=== PATIENT | male | born 1935 | race Caucasian/White ===

== ENCOUNTER 2017-03-11 19:48 | Inpatient (IN) | payer MEDICARE, OTHER ==
[~2017-03-11] VITALS: Ht 177.8 cm; Wt 111.4 kg
--- NOTE | ~2017-03-11 | ECH ---
Transthoracic Echocardiography Report (TTE) Demographics Patient Name CHARANJIT MUNOZ Date of Study 03/12/2017 Patient Number [id number] Visit Number [id number] Date of 1935 Room Number 532 Accession Number [id number] Gender Male Age 81 year(s) Referring Luis Clinton MD Diagnostic Assistant Nancy Ferrer Physician [facility] Physician Interpreting Juan HAGAN Janitorial Assistant Physician Marcellus Supervising Ordering Physician Luis Clinton MD, MD/P Nurse Stress Steam Turbine Operator Conclusions Contractility Score Summary Normal Left Ventricular contractility was noted. Summary Technically adequate exam. Study done supine. Patient refused to turn on left side due to neck pain. The estimated left ventricular ejection fraction is 60-65%. The left atrium is severely dilated by LA volume index measurement. The aortic valve is mildly sclerotic. There is no aortic regurgitation by color Doppler. Visualized portions of the aortic root and ascending aorta appear normal in size. No evidence of dissection. Recommendation The patient will be given the results of this study by the physician who ordered the exam. Procedure Type of Study TTE procedure:Echo Complete SF. Procedure Date Date: 03/12/2017 Start: 12:48 Technical Quality: Adequate visualization Indications:Chest pain, Atrial fibrillation, Diabetes, Hypertension and pacemaker/defibrillator. Additional Indications:CT evidence of possible aortic dissection Appropriate Use Criteria: 9 Height: 70 inches Weight: 245.6 pounds BSA: 2.28 m Rhythm: Atrial fibrillation HR: 62 bpm BP: 115/55 mmHg M-Mode/2D Measurements LV Diastolic Dimension: 4.68 cm LV Systolic Dimension: 2.17 cm LV Septum Diastolic: 0.98 cm LV PW Diastolic: 0.98 cm AO Root Dimension: 2.88 cm Cardiac Output: 4.23 l/min LA Dimension: 4.41 cm Cardiac Index: 1.86 l/min*m RV Diastolic Dimension: 3.63 cm LA volume index: 49 ml/m LVOT: 1.99 cm LVOT VTI: 21.97 cm RV Base: 3.6 cm LV Stroke volume: 68.3 ml RV Mid: 2.9 cm LV Stroke volume index: 29.96 ml/m TAPSE: 2 cm TDI-S': 10 cm/s Doppler Measurements AV Peak Velocity: 1.4 m/s MV Peak E-Wave: 1.25 m/s AV Peak Gradient: 7.84 mmHg AV Mean Gradient: 6.23 mmHg MV P1/2t: 57.5 msec LVOT Peak Velocity: 1.1 m/s AV Area (Continuity):2.47 cm MV Area (PHT): 3.83 cm TR Velocity:2.73 m/s PV Peak Velocity: 1.03 m/s TR Gradient:29.81 mmHg PV Peak Gradient: 4.27 mmHg Estimated RAP:3 mmHg Estimated PASP: 32.81 mmHg Estimated RVSP: 33 mmHg E' Septal Velocity: 0.09 m/s E' Lateral Velocity: 0.11 m/s RA Area: 17.32 cm Findings Left Ventricle Normal left ventricle size and function. Diastolic function indeterminate due to patient's arrhythmia. Right Ventricle Normal right ventricle structure and function. Left Atrium The left atrium is severely dilated by LA volume index measurement. Right Atrium Normal right atrial size. Mitral Valve Normal mitral valve structure and function. Trivial mitral regurgitation by color Doppler. Aortic Valve The aortic valve is mildly sclerotic. There is no aortic regurgitation by color Doppler. Tricuspid Valve Normal tricuspid valve structure and function. Mild tricuspid regurgitation by color Doppler. Normal pulmonary pressures. Pulmonic Valve Normal pulmonic valve structure and function. Pericardial Effusion No evidence of pericardial effusion. Miscellaneous Visualized portions of the aortic root and ascending aorta appear normal in size. No evidence of dissection. Pleural Effusion No evidence of pleural effusion. Contractility Score LV regional wall motion:(0-Non visualized 1-Normal 2-Hypokinesis 3-Akinesis 4-Dyskinesis 5-Aneurysm) Signature
[~2017-03-11 19:48] MED LIST: ALDACTONE DPS25 MG PO; ASA CHILDREN'S81 MG PO; CALTRATE-600 D600 MG; CALTRATE-600 D600 MG PO; HUMALOG100 UNIT/1 SQ; LASIX DPS80 MG PO; MIRAPEX0.5 MG PO; PATANOL 0.1%5 ML OU; PROTONIX40 MG PO; XARELTO15 MG PO
[2017-03-15] MEDS ORDERED: DELTASONE DPS20 MG PO (14:41)
--- NOTE | 2017-03-16 14:43 | ER ---
ADMIT: 03/11/2017 RM/LOC: ER [facility] MR#: [id number] [address] [address] [place] [address] Emergency Room Report SEX: M AGE: 81 : 1935 DATE: 03/11/2017 CHIEF COMPLAINT: Right shoulder pain and neck pain. HISTORY OF PRESENT ILLNESS: The patient is an 81-year-old gentleman comes in complaining of two days of right shoulder pain. It began in his inferior aspect of his right scapula and spread up to include his right scapula on to the apex of his right shoulder. He then developed pain over the past 24 hours to include his neck to the point where he is having severe pain in his neck and will not move his neck. He denies any difficulty breathing or swallowing. No change in his voice. He does not have any fevers, chills, nausea, or vomiting. The patient states he also does not have any chest pain or shortness of breath. No abdominal pain. No numbness, tingling, or weakness in any extremity. He does golf but golfs four times a week and has not had any change in his level of activity or any injuries that would account for any musculoskeletal problems. REVIEW OF SYSTEMS: Ten-point review of systems is done and otherwise negative except as in HPI. PAST MEDICAL HISTORY: Significant for atrial fibrillation, CHF, insulin- dependent diabetes, hypertension, hyperlipidemia, restless legs syndrome, neuropathy. PAST SURGICAL HISTORY: He has had a pacemaker placed. MEDICATIONS: See nurse's note. ALLERGIES: SEE NURSE'S NOTE. SOCIAL HISTORY: The patient denies smoking, drug, or alcohol use and does live at home with his . PHYSICAL EXAMINATION: VITAL SIGNS: Initial blood pressure is 105/57, pulse 72, respirations 17, temp 99.7, sats 94% on room air. HEENT: The patient's head is atraumatic. Pupils are equal, round, reactive to light. He does have some bilateral conjunctiva injection, but this is not new for him. Airway is patent. No posterior oropharynx swelling or erythema noted. NECK: I do not feel any lymphadenopathy on his neck. He will not move his neck as he states it hurts throughout the back of his neck with any movement. SPINE: He has no tenderness over the bones of midline of his cervical spine. CHEST: His anterior upper chest shows he has some fullness above his bilateral clavicles which appears to be edematous and boggy. The patient and his state this is new for him. NEUROLOGIC: Examination of his right shoulder reveals he can range of motion of his shoulder without difficulty. I cannot elicit any tenderness in his right shoulder. He has no abnormalities distally in the right upper extremity and has good pulses and sensation in that arm. ADMIT: 03/11/2017 RM/LOC: ER [facility] MR#: [id number] [address] [place] [id number] CHARANJIT MUNOZ [address] [place] [address] Emergency Room Report SEX: M AGE: 81 : 1935 HEART: Irregularly irregular. Not tachycardic. LUNGS: Clear to auscultation. ABDOMEN: Protuberant but nontender. EXTREMITIES: Lower extremity shows he has 2 to 3+ bilateral lower extremity edema which is not new for him and some mild erythema primarily on the left anterior naik which is also not new for him. He has good pulses distally. LABORATORY DATA: CBC is normal. CRP is elevated at 7.09. Potassium is low at 2.8. Carbon dioxide is 36. BUN is 33, glucose 164, creatinine 2.3. Troponin less than 0.015. EKG shows atrial fibrillation, rate of 78. CT chest shows nothing acute. I did discuss the results of the CT chest with the radiologist on for [facility] as I had some concern of the base of his aorta on the images most prominently seen on the CT of the soft tissue neck. The radiologist I spoke to believes this is motion artifact and not actually any defect with the aorta. He is also noted to have a larger thyroid on the right side of his neck which is seen peritracheal, which is also likely not an acute finding. EMERGENCY DEPARTMENT COURSE: When the patient initially presented, there was some concern of cardiac chest pain and a cardiac routine was initiated. On further questioning, it seems more likely this could be related to his aorta and I wanted to get a CT angio of his chest and neck but was unable to due to the chronic kidney disease with a creatinine of 2.3. We did get the noncontrast study, which was a report from the radiologist from [facility], has no acute findings. Due to the severity of the patient's neck pain without any injury or no activity with a new bogginess noted on his anterior upper chest, I am uncomfortable having the patient being discharged home at this time. I believe further testing and imaging is required to ensure he does not have any sort of aortic pathology. Plan at this time is that the patient come in to the hospital for observation, and I spoke to Dr. Smith, who will be writing admitting orders as the patient normally sees Dr. Batista. DIAGNOSES: 1. Severe neck pain. 2. Hypokalemia. 3. Chronic kidney disease. Roverto Shay MD/ nati JOB #: [id number] CC: Harlan Pantoja MD, Attending Physician Saw Batista MD, Family Physician
--- NOTE | 2017-03-17 16:52 | DS ---
ADMIT: 03/13/2017 RM/LOC: 532 [facility] MR#: [id number] [address] [place], [place] [address] CHARANJIT MUNOZ [address] [place] [address] Discharge Summary SEX: M AGE: 81 : 1935 ADMISSION DATE: 03/13/2017 DISCHARGE DATE: 03/14/2017 FINAL DIAGNOSES: 1. Back pain, shoulder pain and neck pain. 2. Supraclavicular swelling. 3. Atrial fibrillation with anticoagulation. 4. Chronic kidney disease. 5. Chronic diastolic heart failure. 6. Diabetes. 7. Obstructive sleep apnea. 8. Cognitive impairment. 9. Hypokalemia. REASON FOR ADMISSION: This is an 81-year-old gentleman who presented with acute onset of shoulder pain and neck pain. He was evaluated and initially ruled out for dissection. CT scan showed abnormal swelling around the aorta. Ultrasound did not confirm this swelling. After findings of elevated inflammatory markers including sedimentation rate in the 70s, he was put on a little bit of prednisone and by the was feeling much better. He also had some localized treatment with heat and some Flexeril for muscle spasms. He overall then was feeling better and feeling like he wanted to go home. On the day of discharge his blood sugars were mildly elevated. These were controlled with sliding scale insulin. DISCHARGE MEDICATIONS: He will be on: 1. Bumex 2 mg b.i.d. 2. Prednisone 20 mg daily for 10 days. 3. Entresto one tab p.o. b.i.d. 4. Klonopin 1.5 mg at bedtime. 5. Potassium chloride 20 mEq daily. 6. Lipitor 10 mg daily. 7. Lopressor 25 mg b.i.d. 8. Neurontin 300 mg t.i.d. 9. Calcium 500 mg daily. 10.Protonix 40 mg daily. ADMIT: 03/13/2017 RM/LOC: 532 [facility] MR#: [id number] [address] [address] CHARANJIT MUNOZ [address] [place], [place] [address] Discharge Summary SEX: M AGE: 81 : 1935 11.Requip 2 mg at bedtime and 1 mg at 2, 5 and 9. 12.Rocaltrol 0.25 mcg Monday, Monday, Monday. 13.Zaroxolyn 2.5 mg Monday, Monday, Monday. 14.Restasis eyedrops OU b.i.d. 15.Levemir 40 units daily. 16.Low-dose sliding scale NovoLog with each meal. FOLLOWUP: He will have follow up with me in 1 weeks time. At that time, we will get a CRP sedimentation rate, and BMP. Should be on a low-salt diet until that time. Saw Batista MD/ vdg JOB #: [id number] CC: Saw Batista MD, Attending Physician Saw Batista MD, Family Physician Will Story MD
--- NOTE | 2017-03-20 07:28 | HP ---
ADMIT: 03/12/2017 RM/LOC: 532 [facility] MR#: [id number] [address] [address] CHARANJIT MUNOZ [facility] [place] [address] History and Physical SEX: M AGE: 81 : 1935 DATE OF SERVICE: CHIEF COMPLAINT: Bilateral shoulder blade and neck pain, stiffness. HISTORY OF PRESENT ILLNESS: The patient is a very pleasant 81-year-old gentleman with multiple medical problems including diabetes; chronic kidney disease; atrial fibrillation on chronic anticoagulation, status post pacemaker who presents to [facility] Emergency Room overnight with complaints of discomfort starting on night. He noted this discomfort started below his right shoulder blade, kind of moved up into his right shoulder blade night into Monday. This pain was started out kind of being achy, but then became very sharp in nature and then also moved to include his left shoulder blade and then kind of up to his neck. This pain would come and go, but when that would come, was very sharp and severe in nature and over that e course of the day, Monday, he noticed problems with neck stiffness. He did bother his neck did hurt whenever he tried to move it and felt stiff. He note that there was pain in his shoulders when he tried to move his shoulders as well. He denied any fevers, chills, or any headache. No chest pain or shortness of breath. No nausea, vomiting, bowel or bladder complaints noted. He did notice he had been out the golf on , but has been golfing about four times a week multiple times in the spring and really had done nothing out of the ordinary. In the emergency room, he was evaluated and found also have some supraclavicular swelling. The patient states he had never noticed as well. He underwent imaging of the chest and the soft tissues of the neck and was admitted for further evaluation and treatment. PAST MEDICAL HISTORY: Past medical history includes: 1. Hypertension. 2. Chronic atrial fibrillation, on chronic anticoagulation. 3. Chronic diastolic heart failure. 4. Obstructive sleep apnea, on CPAP. 5. GERD. 6. Type 2 diabetes with peripheral neuropathy. 7. Mild cognitive impairment with memory loss. 8. Stage 3 chronic kidney disease. 9. Hyperlipidemia. 10.Restless legs. He is status post eyelid, left. 11.Also has a history of colon polyps. MEDICATIONS: His home medications include: 1. Insulin lispro. 2. Aspirin. 3. Potassium. 4. Lipitor. 5. Bumex. 6. Calcitriol. 7. Os-Tim. 8. Klonopin. 9. Entresto. ADMIT: 03/12/2017 RM/LOC: 532 [facility] MR#: [id number] [address] [address] CHARANJ[place] [address] History and Physical SEX: M AGE: 81 : 1935 10.Gabapentin. 11.Levemir. 12.Metolazone. 13.Metoprolol. 14.Patanol. 15.Protonix. 16.Restasis. 17.Requip. 18.Xarelto. ALLERGIES: NO KNOWN MEDICAL ALLERGIES. SOCIAL HISTORY: He has never been a smoker. He is an occasional drinker. He is . FAMILY HISTORY: Father and mother are ; mother with cancer and heart disease, father with heart disease and stroke as well as some dementia. He has a sister with breast cancer and sister with diabetes. REVIEW OF SYSTEMS: As noted above. All other systems are reviewed and are negative. PHYSICAL EXAMINATION: VITAL SIGNS: 99.7, 68, 18, 115/55, and 92. GENERAL: This is an obese gentleman, appears his stated age. He is awake. He is alert. He is oriented x3. He is cooperative, and he is pleasant. HEENT: Normocephalic and atraumatic. Mucous membranes are moist. NECK: Supple. I do not notice any discrete lymphadenopathy, but he does have a lot of supraclavicular soft tissue puffiness and swelling, it is not tender to the touch. HEART: Irregularly irregular. He has a pacemaker in place in his left upper chest. I do not hear any obvious murmurs right now. LUNGS: Clear to auscultation bilaterally. No wheezes, rhonchi, or rales. ABDOMEN: Soft, nontender, and nondistended. Positive bowel sounds throughout. EXTREMITIES: He has at least 2+ foot, ankle, and calf edema with changes of venous stasis dermatitis. NEUROLOGIC: Cranial nerves are intact, II through XII. I am not picking up any focal deficits right now. MUSCULOSKELETAL: The patient has some pain with range of motion on both the right and left shoulders. I am not picking up any obvious rotator cuff pathology. He is a little tender over the AC joints bilaterally. On palpation of the musculature of his back, he is tender along the borders of his scapula bilaterally. I do not notice any obvious soft tissue abnormalities. Exam of the neck: Due to pain and stiffness, his range of motion is severely decreased, but he is able to move slightly in flexion and extension and in rotation, but is diminished in all actions. He does also have a lot of soft tissue and muscle tightness and spasm on palpation of the ADMIT: 03/12/2017 RM/LOC: 532 [facility] MR#: [id number] [address] [address] [place] [address] History and Physical SEX: M AGE: 81 : 1935 cervical spine. I do not supervisor picking crew any obvious lymphadenopathy back there right now. LABORATORY AND DIAGNOSTIC STUDIES: His lab work shows a troponin less than 0.015. His CRP is 7.09. His lactic was 1.3, procalcitonin 0.08. Hemoglobin 14.7, white count was 9.72 and 129,000 platelets. Sodium 139. His chloride is 95, bicarb is 36, BUN is 33, creatinine 2.3. Noncontrast CT scan of the chest showed lungs were normal, no infiltrate, minimal basilar atelectasis. No pericardial effusion. There was questionable fluid densely along the posterior right aspect of the ascending aorta from the root to the arch, nonspecific. Does have some mild enlargement of the right lobe of the thyroid gland and did have a few small gallstones and splenic calcifications. CT scan of the neck showed airway is patent. Trachea is unremarkable. Oropharynx and nasopharynx unremarkable, as well as submandibular glands unremarkable. There was no significant adenopathy noted. There is also noted to be an opacity along the posterior right aspect of the ascending aorta from the base to the arch. Chest, on EKG, shows atrial fibrillation with occasional paced beat at 78 beats, but I do not see any acute changes. ASSESSMENT AND PLAN: 1. Severe bilateral shoulder pain and discomfort, neck pain, and stiffness. 2. Bilateral supraclavicular swelling, questionable lymphadenopathy. 3. Abnormal CT scan of the chest for fluid collection along the ascending aorta. 4. Hypokalemia. 5. Atrial fibrillation, on chronic anticoagulation with Xarelto. 6. Status post pacemaker placement. 7. Chronic diastolic heart failure. 8. Diabetes. 9. Chronic kidney disease. 10.Obstructive sleep apnea, on CPAP. 11.Cognitive impairment. At this time, the patient is pain free. It is very difficult for me to ascertain the etiology of the patient's complaints. Certainly, he has a lot of discomfort with movement of both of the shoulders as well as his neck. I do not supervisor picking crew any obvious joint effusions right now. I am going to check a sedimentation rate on him, certainly would always wonder about PMR. This very ADMIT: 03/12/2017 RM/LOC: 532 [facility] MR#: [id number] [address] [address] [place] [address] History and Physical SEX: M AGE: 81 : 1935 much does seem musculoskeletal to me in nature. We are going to check bilateral shoulder x-rays and soft tissue ultrasound of the neck to include his carotids and vertebral arteries. Bilateral supraclavicular soft tissue swelling is a little strange. Obviously with a CT scan of the chest findings, certainly must be worried about dissection, I am going to visit with Cardiology about a possible. I am going to keep him n.p.o., replace his potassium, but discussed with them possible transesophageal echocardiogram to look at that area more closely. His first set of cardiac enzymes are fine. We are going to grab a couple of other sets of those and watch him on telemetry. As I do still kind of wonder about musculoskeletal etiologies, we will plan for some ice to the neck as well as some Flexeril. Plan on a sliding scale insulin. Home CPAP and we will watch him closely. Greg Smith MD/ nati JOB #: [id number] CC: Saw Batista, Attending Physician Saw Batista, Family Physician
[2017-05-05] MEDS ORDERED: LIPITOR DPS10 MG PO (14:46)
[2017-05-05] MEDS ORDERED: KLOR-CON M2020 ME1 PO (14:46)
[2017-05-05] MEDS ORDERED: BUMETANIDE2 MG PO (14:46)
[2017-05-05] MEDS ORDERED: OYSTER SHELL C500 MG PO (14:47)
[2017-05-05] MEDS ORDERED: ROCALTROL DP0.25 MCG PO (14:47)
[2017-05-05] MEDS ORDERED: KLONOPIN DPS1 MG PO (14:47)
[2017-05-05] MEDS ORDERED: ENTRESTO 24 MG1 EACH PO (14:48)
[2017-05-05] MEDS ORDERED: NEURONTIN DPS300 MG PO (14:48)
[2017-05-05] MEDS ORDERED: LEVEMIR100 UNIT/1 SQ (14:48)
[2017-05-05] MEDS ORDERED: ZAROXOLYN2.5 MG PO (14:49)
[2017-05-05] MEDS ORDERED: RESTASIS1 EACH OU (14:49)
[2017-05-05] MEDS ORDERED: METOPROLOL TART25 MG PO (14:49)
[2017-05-05] MEDS ORDERED: REQUIP1 MG PO (14:50)
[2017-05-05] MEDS ORDERED: REQUIP3 MG PO (14:50)
[2017-05-05] MEDS ORDERED: NOVOLOG100 UNIT/2 SQ (14:51)
== END 2017-03-14 13:00 | disposition home or self-care (01) | DRG 552 ==
LOC: ER 19:48 → 5MS 03-12 00:05
PROVIDERS: ADMIT Internal Medicine
DX: M54.2 Cervicalgia (principal); E11.9 Type 2 diabetes mellitus without complications; E11.40 Type 2 diabetes mellitus with diabetic neuropathy, unspecified; E11.22 Type 2 diabetes mellitus with diabetic chronic kidney disease; I13.0 Hypertensive heart and chronic kidney disease with heart failure and stage 1 through stage 4 chronic kidney disease, or unspecified chronic kidney disease; I48.2 Chronic atrial fibrillation; I50.32 Chronic diastolic (congestive) heart failure; N18.3 Chronic kidney disease, stage 3 (moderate); G31.84 Mild cognitive impairment of uncertain or unknown etiology; E78.5 Hyperlipidemia, unspecified; M25.511 Pain in right shoulder; M25.512 Pain in left shoulder; G25.81 Restless legs syndrome; R22.1 Localized swelling, mass and lump, neck; E87.6 Hypokalemia; Z79.01 Long term (current) use of anticoagulants; G47.33 Obstructive sleep apnea (adult) (pediatric); K21.9 Gastro-esophageal reflux disease without esophagitis; Z79.82 Long term (current) use of aspirin; Z79.4 Long term (current) use of insulin; Z95.0 Presence of cardiac pacemaker